=== PATIENT | female | born 1985 | race Caucasian/White ===

== ENCOUNTER 2017-09-23 13:42 | Inpatient (IN) | payer OTHER ==
[~2017-09-23] VITALS: Ht 152.4 cm; Wt 79.0 kg
[~2017-09-23 13:42] MED LIST: ACYCLOVIR400 MG PO; ENBRACE HR SOF1 EACH PO
--- NOTE | 2017-11-01 08:47 | NUR ---
11/01/17 0847 Christi No 0825 PT ARRIVED TO [facility] ROOM AWAKE, RESP EVEN AND UNLABORED. DENIES PAIN AND NAUSEA. 0846 PT CONTINUES TO DENIES PAIN AND NAUSEA. BABY TO CHEST.
--- NOTE | 2017-11-01 18:14 | OR ---
[facility] [address] [place], [place] [address] Signed DATE OF OPERATION: 11/01/2017 SURGEON: Gui Luz MD Patient of Dr. Luz. PREOPERATIVE DIAGNOSIS: Term , previous section. POSTOPERATIVE DIAGNOSIS: Term , previous section. PROCEDURE: Repeat low transverse segment section, delivery of live female . DELIVERY MOTORCYCLE DRIVER: Dr. Lucas. ANESTHESIA: Spinal. ESTIMATED BLOOD LOSS: 650 mL. COMPLICATIONS: None. DRAINS: Navarro to bladder. FINDINGS: Live female infant, Apgars 9 and 9. Weight 9 pounds 0 ounces. Normal uterus, normal tubes, and ovaries bilateral. DESCRIPTION OF PROCEDURE: The patient was brought to the operating room and placed in supine position. After adequate spinal anesthesia was obtained, was prepped and draped in usual sterile fashion. A Pfannenstiel skin incision was made through previous surgical scar using a scalpel. Subcutaneous tissue was dissected with a scalpel and a Bovie. Any bleeding spots were cauterized with a Bovie. The fascia was nicked with scalpel and extended in Electronically Signed By: GUI LUZ MD 11/01/17 1814 PATIENT NAME: NORMA LLOYD OPERATIVE REPORT DATE OF : 89 REPORT #: [id number] PHYSICIAN: GUI LUZ MD PCP: CHYNA WHITE MD REPORT IS CONFIDENTIAL AND NOT TO BE RELEASED WITHOUT AUTHORIZATION [facility] [address] [place], [place] [address] Signed transverse fashion using curved scissors. The underlying abdominal musculature was bluntly and sharply from the facia. THe abdominal musculature was then bluntly and sharply along the midline. Peritoneum was grasped with hemostats, elevated, nicked with Lawler scissors, and extended in vertical fashion using curved scissors. The Burton self-retaining retractor was inserted into the incision and tightened in place. Lower uterine segment was identified and the bladder was noted to be well below the area of dissection. The lower uterine segment was carefully nicked with scalpel and extended in transverse fashion using finger dissection. Clear fluid came from the incision. The infant was noted in vertex ROT presentation, and the infant's head was easily delivered from the incision. The rest of the was easily delivered from the incision. The mouth and nose were suctioned with bulb syringe while the cord was doubly clamped and cut. The infant was passed off table in good condition to the awaiting nurse. The placenta was manually removed and uterine cavity explored with a lap pad to remove any retained membranes. T-clamps were used to grasp the angles in the lower edge of the incision. An angle stitch of 0 Monocryl was placed at one end of the incision and a running locking stitch of 0 Monocryl starting at the other end was used to close the incision. A 2nd running stitch of 0 Monocryl was used to imbricate the 1st layer. Good hemostasis was noted. The entire pelvis was irrigated, suctioned, examined. Any superficial bleeding spots were cauterized with a Bovie. When good hemostasis was obtained, the Burton retractor was removed. A sheet of ACell was placed over the incision to help with healing and then the peritoneum closed using a running stitch. The running stitch of 2-0 Vicryl suture. The abdominal musculature was reapproximated using interrupted stitches of 0 Vicryl suture. The abdominal musculature was irrigated, suctioned, and examined. Any bleeding spots were cauterized with a Bovie. Abdominal musculature was sprinkled with powdered ACell and then the fascia was closed using 2 running stitches of 0 Vicryl suture meeting in the midline. The subcutaneous tissue was irrigated, suctioned, examined, and any bleeding spots cauterized with a Bovie. The remaining powdered ACell was sprinkled on subcutaneous tissue, which was then closed using interrupted stitches of 3-0 Vicryl suture. Skin was reapproximated using skin clips. The patient tolerated the procedure well and went to recovery room in good condition. Sponge, needle, and instrument count was correct at the end of procedure. Gui Luz MD MJB/MODL Electronically Signed By: GUI LUZ MD 11/01/17 1814 PATIENT NAME: NORMA LLOYD OPERATIVE REPORT DATE OF : [birth year] REPORT #: [id number] PHYSICIAN: GUI LUZ MD PCP: CHYNA WHITE MD REPORT IS CONFIDENTIAL AND NOT TO BE RELEASED WITHOUT AUTHORIZATION [address] [address] Signed /[id number] Copies: ~ Electronically Signed By: GUI LUZ MD 11/01/17 1814 PATIENT NAME: NORMA LLOYD OPERATIVE REPORT DATE OF : [birth year] REPORT #: [id number] PHYSICIAN: GUI LUZ MD PCP: CHYNA WHITE MD REPORT IS CONFIDENTIAL AND NOT TO BE RELEASED WITHOUT AUTHORIZATION
--- NOTE | 2017-11-03 10:09 | PR ---
[facility] [address] [place] [address] Signed PP Progress Notes Datetime Report Generated by CPN: 11/03/2017 10:09 SUBJECTIVE: [id number] Pain: Within normal limits Nausea/Vomiting: Denies Vital Signs: [id number] Vital Signs: Reviewed; Within Normal Limits Notable Details: PP HGb/Hct = 10.9/31.4 EXAM: [id number] Abdomen/Uterus: Normal Lochia: Normal Extremities: Normal Incision: Normal Exam Comments: dressing clean and dry IMPRESSION/PLAN/PROCEDURES: [id number] Impression: Normal progression Plan: Discharge Procedures: None Progress Notes: Doing well, ready to go home. Signing Physician: Oumou Dela Cruz MD Copies: ~ *Electronically Signed* 11/03/17 1009 OUMOU DELA CRUZ MD PATIENT NAME: NORMA LLOYD PROGRESS NOTE DATE OF : 89 PHYSICIAN: OUMOU DELA CRUZ MD RPT #: [id number] REPORT IS CONFIDENTIAL AND NOT TO BE RELEASED WITHOUT AUTHORIZATION
== END 2017-11-03 11:50 | disposition home or self-care (01) | DRG 765 ==
LOC: FBC 11-01 05:33
PROVIDERS: ADMIT General Practice
PROC: 10D00Z1 Extraction of Products of Conception, Low, Open Approach (ICD-10-PCS; principal; 2017-11-01 06:45)
DX: O34.211 Maternal care for low transverse scar from previous cesarean delivery (principal); O98.32 Other infections with a predominantly sexual mode of transmission complicating childbirth; N85.8 Other specified noninflammatory disorders of uterus; O32.2XX0 Maternal care for transverse and oblique lie, not applicable or unspecified; A60.00 Herpesviral infection of urogenital system, unspecified; Z79.899 Other long term (current) drug therapy; Z86.19 Personal history of other infectious and parasitic diseases; Z3A.39 39 weeks gestation of pregnancy; Z37.0 Single live birth
CPT/HCPCS: 36415; 85027; C1763; J0690; J2274; J2405; J2590; J3010; J7120

== ENCOUNTER 2018-09-04 08:41 | Emergency (ER) | payer OTHER ==
[~2018-09-04] VITALS: Ht 152.4 cm; Wt 78.5 kg
[2018-09-04] MEDS ORDERED: BENADRYL25 MG PO (08:56)
[2018-09-04] MEDS ORDERED: ZYRTEC10 M3 PO (08:56)
== END 2018-09-04 10:39 | disposition home or self-care (01) ==
LOC: ED 08:41
DX: L50.9 Urticaria, unspecified (principal); Z79.899 Other long term (current) drug therapy
CPT/HCPCS: 96372; 99282-25; J2930

== ENCOUNTER 2024-07-27 08:25 | Day surgery (SDC) | payer OTHER ==
[~2024-07-27] VITALS: Ht 152.4 cm; Wt 63.6 kg
[~2024-07-27 08:25] MED LIST changes: +BENADRYL25 MG PO; +IBLOOD GLUCOSE TEST STRIP 1 EA TEST VI PRN; +LACTATED RINGER'S 1,000 ML IV SCH; +LIDOCAINE HCL 1% 5 ML SDV INJ ONE; +MIDAZOLAM HCL 5 MG/5 ML VIAL IV PRN; +ZYRTEC10 M3 PO; +fentaNYL citrate 100 MCG/2 ML VIAL IV PRN
[2024-07-27 08:52] VITALS: BP 114/60
[2024-07-27] MEDS ORDERED: VALACYCLOVIR500 MG PO (08:56)
[2024-07-27] MEDS ORDERED: MIDAZOLAM HCL 2 MG/2 ML VIAL ONE (09:05)
[2024-07-27] MEDS ORDERED: fentaNYL citrate 100 MCG/2 ML VIAL ONE (09:05)
--- NOTE | 2024-07-27 10:07 | NUR ---
07/27/24 1007 Sheets,Christi 1002 PT ARRIVED TO PACU ON 2L NC, PT WAKES EASILY AND DENIES CONCERNS. PLAN OF CARE DISCUSSED AND PT EASILY FALLS BACK TO SLEEP. VSS.
[2024-07-27 10:47] VITALS: BP 113/75
--- NOTE | 2024-07-28 11:29 | OR ---
[facility] [address] [place], [place] [address] Signed DATE OF OPERATION: 07/27/2024 SURGEON: Theo Dawson MD PREOPERATIVE DIAGNOSIS: Persistent episodic diarrhea and episodic rectal bleeding. POSTOPERATIVE DIAGNOSIS: Normal-appearing colon and rectum. PROCEDURE: Total colonoscopy to cecum with biopsies. ANESTHESIA: Intravenous sedation, fentanyl 150 mcg and Versed 4 mg. INDICATIONS FOR THE PROCEDURE: This 38-year-old white woman is a patient of Dr. Dayanna Nichols. She has long been bothered by gastrointestinal upset, dominantly diarrhea as well as abdominal cramping. In the past five years, she is self managed by trying to grow her own food and avoiding preservatives. She has had only variable benefit from that. Her symptoms include diarrhea, abdominal bloating, and occasional blood per rectum. Symptoms are sometimes controlled with dietary modification, but never totally cured from them. 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 She has never had colon evaluation to assess for inflammatory bowel disease. She has no family history of Crohn's or ulcerative colitis. She now is growing her own type of wheat (Einkorn), but this is not necessarily beneficial to her symptoms. She is on a stimulant (amphetamine/dextroamphetamine) for hypersomnia, and she has been on that for several years. Celiac testing was performed under my direction, which was negative. She is admitted at this time to undergo colonoscopy to assess for inflammatory bowel disease or other etiology of her symptoms. She understands the risk of bleeding, infection, and perforation and wished to proceed. FINDINGS: The prep was excellent. Complete colonoscopy was undertaken of the cecum. Full intubation. The cecum was accomplished. Appendiceal orifice was well identified as was the ileocecal valve. Attempts at intubating the ileocecal valve were unsuccessful. Electronically Signed By: THEO DAWSON MD 07/28/24 6727 PATIENT NAME: NORMA LLOYD OPERATIVE REPORT DATE OF : 89 REPORT #: [id number] PHYSICIAN: THEO DAWSON MD PCP: DAYANNA NICHOLS MD REPORT IS CONFIDENTIAL AND NOT TO BE RELEASED WITHOUT AUTHORIZATION [facility] [address] [place] [id number] Signed Biopsies were taken of the right colon, transverse, left colon, sigmoid and rectum. All areas were grossly normal. Retroflexed view showed only minimal hemorrhoidal change. DESCRIPTION OF PROCEDURE: The patient was brought to the surgical endoscopy suite and placed in lateral decubitus position given intravenous sedation to the point of slurred speech and nystagmus. Full cardiopulmonary monitoring was maintained. An Olympus video colonoscope was passed into the rectum and manipulated throughout the colon, ultimately intubating the cecum itself. The ileocecal valve and appendiceal orifice appeared normal. The ileocecal valve was slit-like and attempts to intubate were unfortunately unsuccessful and many attempts were made. The scope was withdrawn and biopsies were then taken of the right colon, transverse colon, left colon, sigmoid and rectum. Retroflexed view was normal except for minimal hemorrhoidal change. The scope was removed. The patient was taken to the recovery room in good condition. CONCLUDING DIAGNOSIS: Grossly normal-appearing colon and rectum, except for minimal hemorrhoidal change. PLAN: Review of her lab studies show celiac panel, which was felt to be negative. I will empirically prescribe lactase enzyme 3000 units 1-2 p.o. with each meal and see her back in the office in 3-4 weeks to review her pathology report. Specifically, we will be looking for occult colitis (lymphocytic colitis, etc.) If she does not improved with the enzyme approach, symptom control will be initiated with other methods. Theo Dawson MD /MODL /[id number] cc: Dayanna Nichols MD Electronically Signed By: THEO DAWSON MD 07/28/24 1129 PATIENT NAME: NORMA LLOYD OPERATIVE REPORT DATE OF : 89 REPORT #: [id number] PHYSICIAN: THEO DAWSON MD PCP: DAYANNA NICHOLS MD REPORT IS CONFIDENTIAL AND NOT TO BE RELEASED WITHOUT AUTHORIZATION [facility] [address] [place], [place] [address] Signed Copies: DAYANNA NICHOLS DMD ~ Electronically Signed By: THEO DAWSON MD 07/28/24 1129 PATIENT NAME: NORMA LLOYD OPERATIVE REPORT DATE OF : 89 REPORT #: [id number] PHYSICIAN: THEO DAWSON MD PCP: DAYANNA NICHOLS MD REPORT IS CONFIDENTIAL AND NOT TO BE RELEASED WITHOUT AUTHORIZATION
--- NOTE | 2024-07-31 11:28 | PATH ---
[facility] [address] [place], [place] [address] Signed SPECIMEN(S): A ASCENDING BIOPSY SPECIMEN(S): B TRANSVERSE BIOPSY SPECIMEN(S): C DESCENDING BIOPSY SPECIMEN(S): D SIGMOID BIOPSY SPECIMEN(S): E RECTUM BIOPSY SPECIMEN SOURCE: A. ASCENDING BIOPSY B. TRANSVERSE BIOPSY C. DESCENDING BIOPSY D. SIGMOID BIOPSY E. RECTUM BIOPSY CLINICAL HISTORY: Rectal bleeding, chronic diarrhea. FINAL PATHOLOGIC DIAGNOSIS: A. Colon, ascending, biopsy: - Colonic mucosa with no significant pathologic changes B. Colon, transverse, biopsy: - Colonic mucosa with no significant pathologic changes C. Colon, descending, biopsy: - Colonic mucosa with no significant pathologic changes D. Colon, sigmoid, biopsy: - Colonic mucosa with no significant pathologic changes E. Rectum, biopsy: - Colonic mucosa with no significant pathologic changes BRP MICROSCOPIC EXAMINATION: Histologic sections of all submitted blocks are examined by light microscopy. These findings, together with the gross examination, support the pathologic diagnosis. GROSS DESCRIPTION: A. The specimen, labeled and designated "Grace Chang, 1." and designated on the requisition "ascending/right biopsy," is received in formalin and consists of two viera soft tissue fragments that measure 0.4 and 0.6 cm in greatest dimension. The specimen is entirely submitted in (A1). B. The specimen, labeled and designated "Bernardo, Grace, 2." and designated on the PATIENT NAME: NORMA CHANG PATHOLOGY DATE OF : 89 REPORT #: [id number] PHYSICIAN: LUIS PATHOLOGY PCP: DAYANNA NICHOLS MD REPORT IS CONFIDENTIAL AND NOT TO BE RELEASED WITHOUT AUTHORIZATION [facility] [address] [place], [place] [address] Signed requisition "transverse biopsy," is received in formalin and consists of two viera soft tissue fragments that measure 0.4 and 0.5 cm in greatest dimension. The specimen is entirely submitted in (B1). C. The specimen, labeled and designated "Chang, S, 3." and designated on the requisition "descending/left biopsy," is received in formalin and consists of two viera soft tissue fragments that measure 0.4 and 0.6 cm in greatest dimension. The specimen is entirely submitted in (C1). D. The specimen, labeled and designated "Chang, S, 4." and designated on the requisition "sigmoid biopsy," is received in formalin and consists of four viera soft tissue fragments that measure 0.2-1.6 cm in greatest dimension. The specimen is entirely submitted in (D1). E. The specimen, labeled and designated "Chang, S, 5." and designated on the requisition "rectum biopsy," is received in formalin and consists of one viera soft tissue fragment that is 0.4 cm in greatest dimension. The specimen is entirely submitted in (E1). FB (under the direct supervision of a pathologist) The Gross Description was prepared using a voice recognition system. The report was reviewed for accuracy; however, sound-alike word errors, addition and/or deletions may occur. If there is any question about this report, please contact Client Services. ADDITIONAL NOTES: Immunohistochemical and/or in situ hybridization studies if performed in this case included appropriate positive controls that reacted as expected. This test was developed and its performance characteristics determined by [facility]. It has not been cleared or approved by the U.S. Food and Drug Administration. The FDA has determined that such clearance or approval is not necessary. This test is used for clinical purposes. It should not be regarded as investigational or for research. [facility] is certified under the Clinical Laboratory Improvement Amendments of 1988 (CLIA) as qualified to perform high complexity clinical laboratory testing. PERFORMING LABORATORY: Technical component was performed by [facility], [address] [place] [id number] (CLIA# [id number]). Professional interpretation was performed by [facility], [address] [place] [address] (CLIA#: [id number]). PATIENT NAME: NORMA CHANG PATHOLOGY DATE OF : 89 REPORT #: [id number] PHYSICIAN: LUIS BEARD PCP: DAYANNA NICHOLS MD REPORT IS CONFIDENTIAL AND NOT TO BE RELEASED WITHOUT AUTHORIZATION [facility] [address] [place] [address] Signed Diagnostician: Gera Le MD Pathologist Electronically Signed 07/31/2024 Copies: ~ PATIENT NAME: NORMA CHANG PATHOLOGY DATE OF : 89 REPORT #: [id number] PHYSICIAN: LUIS PATHOLOGY PCP: DAYANNA NICHOLS MD REPORT IS CONFIDENTIAL AND NOT TO BE RELEASED WITHOUT AUTHORIZATION
== END 2024-07-27 11:02 | disposition home or self-care (01) ==
LOC: OPS 08:25 → DS 08:25 → OPS 09:30 → DS 14:00 → OPS 14:00
PROVIDERS: ATTEND Surgery
PROC: 0DBL8ZX Excision of Transverse Colon, Via Natural or Artificial Opening Endoscopic, Diagnostic (ICD-10-PCS; 2024-07-27)
PROC: 0DBP8ZX Excision of Rectum, Via Natural or Artificial Opening Endoscopic, Diagnostic (ICD-10-PCS; 2024-07-27)
PROC: 0DBF8ZX Excision of Right Large Intestine, Via Natural or Artificial Opening Endoscopic, Diagnostic (ICD-10-PCS; 2024-07-27)
PROC: 0DBG8ZX Excision of Left Large Intestine, Via Natural or Artificial Opening Endoscopic, Diagnostic (ICD-10-PCS; principal; 2024-07-27 09:30)
DX: K52.9 Noninfective gastroenteritis and colitis, unspecified (principal); K64.4 Residual hemorrhoidal skin tags; G47.10 Hypersomnia, unspecified
CPT/HCPCS: 84703; 99153; G0500; J2250; J3010; J7121